=== PATIENT | female | born 1975 | race Caucasian/White ===

== ENCOUNTER 2016-10-05 22:48 | Emergency (ER) | payer OTHER ==
[~2016-10-05] VITALS: Ht 144.8 cm; Wt 111.4 kg
[2016-10-05 22:50] VITALS: TEMP 37.2; Ht 144.8 cm; Wt 111.4 kg
[2016-10-05] MEDS ORDERED: PRLSR20 PO (23:17)
[2016-10-05] MEDS ORDERED: CHOL1000 PO (23:18)
[2016-10-05 23:49] VITALS: BP 135/77; PULSE 76; O2SAT 96
--- NOTE | 2016-10-06 02:31 | EMERGENCY ROOM VISIT NOTE ---
History Report prepared by Felicia: Donta Carlin Under the Supervision of: Dr. Joceline Morales M.D. First contact with patient: 23:23 Chief Complaint: RASH Stated Complaint: RASH TURNING RED History of Present Illness The patient is a 41 year old female with baseline MR who presents to the Emergency Room with complaints of an acute rash that started prior to arrival. The patient states that the rash is somewhat itchy. The patient's mother notes that the rash broke out approximately 30 minutes after the patient took Tessalon Perles. The patient has never had Tessalon before. The patient's throat does not feel tight, and she has not vomited. The patient was prescribed Tessalon by Dr. Ramirez (Family Medicine) in [place] for a cough that has been going for 2.5 weeks. The cough produces whitish-yellow sputum. The patient has not taken any antihistamines. She has an inhaler and nebulizer at home. The patient is not currently on antibiotics. She is allergic to Ceftin. Source of History: patient, parent Onset: prior to arrival Position: other (skin) Quality: other (rash) Timing: other (acute) Associated Symptoms: No vomiting Review of Systems See HPI for pertinent positives & negatives. A total of 10 systems reviewed and were otherwise negative. Past Medical & Surgical Medical Problems: (1) Down syndrome Family History No pertinent family history Social History Smoking Status: Never Smoker Marital Status: single Housing Status: lives with family Occupation Status: disabled Current/Historical Medications Scheduled Cholecalciferol (Vitamin D3), 1 TAB PO DAILY Omeprazole (Prilosec), 10 MG PO DAILY Allergies Coded Allergies: Cefuroxime (Verified Allergy, Intermediate, HIVES, RASH, SOB, 10/05/16) Physical Exam Vital Signs Date Time Temp Pulse Resp B/P (MAP) Pulse Ox O2 Delivery O2 Flow Rate FiO2 10/05/16 23:49 76 16 135/77 96 Room Air 10/05/16 22:50 37.2 76 16 122/78 97 Room Air Physical Exam Vital signs reviewed. General: Obese, well-appearing female, no distress. HEENT: No scleral icterus, PERRLA, neck supple. Atraumatic. No posterior oropharyngeal or periorbital edema. Cardiovascular: Regular rate and rhythm, no extra sounds. Pulmonary: Clear to auscultation bilaterally, normal work of breathing. Abdomen: Soft, nontender, nondistended, positive bowel sounds. Musculoskeletal: Atraumatic, no peripheral edema. Neurologic: Patient awake alert and oriented x 3 Skin: Faint, fine sandpapery rash to the extremities, back and cheeks. Medical Decision & Procedures Medications Administered Medications (Trade) Dose Ordered Sig/Luis Route Start Time Stop Time Status Last Admin Dose Admin Diphenhydramine HCl (Benadryl Cap) 50 mg NOW ONCE PO 10/05/16 23:45 10/05/16 23:46 DC 10/05/16 23:48 50 MG ED Course 2332: Past medical records reviewed. The patient was evaluated in room A11b. A complete history and physical examination was performed. 2345: Benadryl 50 mg PO. 2345: Discussed the discharge instructions with the patient and her mother. They understand the discharge instructions. The patient is ready for discharge. Medical Decision Differential diagnosis: Etiologies such as allergic reaction, anaphylaxis, urticaria, Thorpe-Bola syndrome, toxic epidermal necrolysis, erythema multiforme, cellulitis, as well as others were entertained. Blood Pressure Screening: Patient was found to have normal blood pressure on screening and does not require follow-up. Medication Reconciliation: I attest that I have personally reviewed the patient' s current medication list. This patient was evaluated and appeared to be in no significant distress. Physical exam is fairly unrevealing. There is a mild rash. Patient was given 50 mg of oral Benadryl. Mother was advised to discontinue Tessalon Perles. She will use Benadryl as needed every 6 hours. They will follow-up with primary care physician this week if symptoms continue and return to the ER for worsening of symptoms or any medical concerns. Impression Primary Impression: Allergic reaction Scribe Attestation The scribe's documentation has been prepared under my direction and personally reviewed by me in its entirety. I confirm that the note above accurately reflects all work, treatment, procedures, and medical decision making performed by me. Departure Information Dispostion Home / Self-Care Referrals Karthik Ramirez M.D. (PCP) Forms HOME CARE DOCUMENTATION FORM, IMPORTANT VISIT INFORMATION, WORK / SCHOOL INSTRUCTIONS Patient Instructions My [facility] Additional Instructions Diagnosis: Allergic Reaction Benadryl 50 mg every 6 hours as needed for itching, rash Avoid Tessalon perrles in the future Follow up with your doctor next week for reevaluation. Return to emergency for worsening of symptoms or any medical concerns.
== END 2016-10-05 23:53 | disposition home or self-care (01) ==
LOC: C.EDB 22:49 → C.EDA 23:53
DX: T78.40XA Allergy, unspecified, initial encounter (principal); X58.XXXA Exposure to other specified factors, initial encounter; Q90.9 Down syndrome, unspecified; Z79.899 Other long term (current) drug therapy; E66.9 Obesity, unspecified; Z68.43 Body mass index [BMI] 50.0-59.9, adult

== ENCOUNTER 2017-07-22 09:57 | Emergency (ER) | payer OTHER ==
[~2017-07-22] VITALS: Ht 129.5 cm; Wt 112.8 kg
[~2017-07-22 09:57] MED LIST: CHOL1000 PO; PRLSR20 PO
[2017-07-22 10:02] VITALS: TEMP 37.2; Ht 129.5 cm; Wt 112.8 kg
[2017-07-22] MEDS ORDERED: CITA20TA4 PO (11:02)
[2017-07-22] MEDS ORDERED: MONT1TAB3 PO (11:02)
[2017-07-22] MEDS ORDERED: NORE1TAB93 PO (11:02)
[2017-07-22] MEDS ORDERED: SULF800T23 PO (11:02)
[2017-07-22] MEDS ORDERED: FAMO20TA11 PO (11:05)
[2017-07-22] MEDS ORDERED: VNTHFA/IN INH (11:05)
[2017-07-22] MEDS ORDERED: OXGN (11:05)
[2017-07-22] MEDS ORDERED: LEVO100T7 PO (11:06)
[2017-07-22] MEDS ORDERED: OPTIRAY 320 IV PRN (11:30)
[2017-07-22 11:47] LABS: BASO % 1.1 %; BASO ABS # 0.07 K/uL (0-0.2); EOS ABS # 0.12 K/uL (0-0.5); HEMATOCRIT 41.4 % (37-47); HEMOGLOBIN 14.3 g/dL (12.0-16.0); IG# 0.02 K/uL (0.00-0.02); LYMPH ABS # 1.22 K/uL (1.2-3.4); MEAN CELL VOLUME 97.2 fL (80-100); MEAN CORPUSCULAR HEMOGLOBIN 33.6 pg (25-34); MEAN CORPUSCULAR HGB CONC 34.5 g/dl (32-36); MEAN PLATELET VOLUME 9.6 fL (7.4-10.4); MONO % 5.2 %; MONO ABS # 0.32 K/uL (0.11-0.59); NEUT % 71.4 %; NEUT ABS # 4.35 K/uL (1.4-6.5); PLATELET COUNT 231 K/uL (130-400); RED CELL DISTRIBUTION WIDTH CV 12.8 % (11.5-14.5); RED CELL DISTRIBUTION WIDTH SD 44.8 fL (36.4-46.3)
[2017-07-22 12:08] LABS: CALCIUM 8.2 mg/dl (8.5-10.1); CREATININE 1.23 mg/dl (0.60-1.20)
--- NOTE | 2017-07-22 12:41 | DIAGNOSTIC IMAGING REPORT ---
HEAD COMBO CLINICAL HISTORY: Headache, right facial pain and right-sided vision loss. COMPARISON STUDY: No previous studies for comparison. TECHNIQUE: Axial images of the head were obtained before and after intravenous administration of 120 cc of Optiray 320 IV. FINDINGS: No acute intracranial hemorrhage, midline shift or mass effect is present. A cavum septum pellucidum is noted. This represents an anatomic variant of no significance. The basilar cisterns are patent. There are no extra-axial collections. There are scattered white matter hypodensities which are predominant the subcortical in distribution. No intracranial mass or pathologic enhancement is identified. There are no significant calvarial abnormality. Sinuses are better depicted on the maxillofacial CT. IMPRESSION: 1. No acute intracranial findings. 2. No intracranial mass or pathologic enhancement. 3. Scattered nonspecific white matter hypodensities. These statistically reflect small vessel disease although are greater than expected for age. A demyelinating process is within the differential although the appearance is not highly suggestive of multiple sclerosis. Electronically signed by: Jose Manuel Parikh M.D. 07/22/2017 12:40 PM Dictated Date/Time: 07/22/2017 12:33 PM
--- NOTE | 2017-07-22 12:44 | DIAGNOSTIC IMAGING REPORT ---
FACIAL-MAXILLOFACIAL WITH HISTORY: 42 years-old Female R facial pain, OBANDO, R visual loss acute headache with right-sided facial pain and vision loss COMPARISON: CT maxillofacial study 08/09/2011 TECHNIQUE: Multiple axial CT images of the maxillofacial structures were obtained following the intravenous administration of 120 mL Optiray 320 IV contrast. A dose lowering technique was used consistent with the principals of HALI. FINDINGS: The soft tissues of the face appear unremarkable. No significant inflammatory stranding or fluid collection identified to suggest abscess. Mildly prominent bilateral level 1 lymph nodes are seen measuring up to 7 mm in short axis. The bilateral parotid, submandibular and sublingual glands appear unremarkable. Nasopharynx and oropharynx are patent and unremarkable. Secretions are seen within the right vallecula. Globes and orbits appear unremarkable. No acute intracranial abnormality. Cavum septum lucidum. No abnormal enhancement. Evaluation of the bony structures demonstrates no acute fracture. Mastoid air cells are clear. Mild polypoid mucosal thickening of the left maxillary sinus with mild bilateral maxillary sinus mucoperiosteal thickening. Hypoplasia of the frontal sinuses. Mild to moderate mucosal thickening of the ethmoid air cells. Degenerative changes are noted within the spine. Evidence of bilateral maxillary antrostomy. IMPRESSION: 1. No acute soft tissue abnormality or drainable fluid collections identified. 2. Mildly prominent bilateral level I lymph nodes may be reactive. 3. Paranasal sinus disease as above. 4. No acute facial bone fracture. The above report was generated using voice recognition software. It may contain grammatical, syntax or spelling errors. Electronically signed by: Parth Kearns M.D. 07/22/2017 12:42 PM Dictated Date/Time: 07/22/2017 12:34 PM
[2017-07-22 15:05] VITALS: BP 115/68; PULSE 78; O2SAT 98
--- NOTE | 2017-07-22 20:01 | EMERGENCY ROOM VISIT NOTE ---
History First contact with patient: 11:05 Chief Complaint: EYE ASSESSMENT Stated Complaint: CANT SEE OUT OF EYE AND SWOLLEN FACE History of Present Illness The patient is a 42 year old female, history of Down syndrome and extensive sinus surgery in 2011, who presents to the Emergency Room with her parents with complaints of right facial pain, headache and inability to see out of her right eye. The parents report that she woke up at 4 AM with this visual demise. The mother reports that the patient has had several infections recently, and has been treated with a Z-Epi and Bactrim. Her last Bactrim treatment was initiated on 07/16/17 for "fluid on her lungs". The patient has history of anaphylaxis with Ceftin. The patient's last sinus surgery was in [address] Encinas. She has followed recently (within the past year, by Dr. Howard. The family reports that they were not happy with his care. The patient has had improvement of her cough since taking the Bactrim. The mother reports that she did have fluid in her right ear on her last PCP exam on 07/16/17. The patient denies any pain. Review of Systems Review of systems could not be performed because of the patient's Down's history. A limited 6 system review was performed with the parents with pertinent positives and negatives as indicated in HPI. Past Medical/Surgical History Medical Problems: (1) Asthma (2) Bronchitis (3) Down syndrome Surgical Problems: (1) History of sinus surgery (2) Status post bilateral foot surgery Family History FH: cancer FH: diabetes mellitus FH: hypertension FH: lung disease Social History Smoking Status: Never Smoker Alcohol Use: none Marital Status: single Housing Status: lives with family Occupation Status: disabled Current/Historical Medications Scheduled Albuterol Hfa (Ventolin Hfa), 2-4 PUFFS INH Q6H Citalopram Hydrobromide (Citalopram Hydrobromide), 30 MG PO QAM Famotidine (Pepcid), 20 MG PO BID Home O2 Therapy (Oxygen), 1 LITER NA PRN Levothyroxine Sodium (Levothyroxine Sodium), 100 MCG PO QAM Montelukast Sodium (Singulair), 10 MG PO HS Norethin Acet & Estrad-Fe (Roopa Fe 1.5/30 1.5-30 mg-Mcg), 1 TAB PO DAILY Sulfa/Trimethoprim (Bactrim Ds 800MG/160MG), 1 TAB PO BID Physical Exam Vital Signs Date Time Temp Pulse Resp B/P (MAP) Pulse Ox O2 Delivery O2 Flow Rate FiO2 07/22/17 15:05 78 18 115/68 98 Room Air 07/22/17 14:00 81 19 109/61 97 Room Air 07/22/17 12:00 83 18 107/55 96 Room Air 07/22/17 10:02 37.2 83 16 135/82 95 Room Air Right Eye Acuity: "cant see anything" Left Eye Acuity: 20/50 Physical Exam CONSTITUTIONAL: Obese female, alert and oriented X 3 with positive affect. The patient is wearing sunglasses, resting in a darkened room. HEENT: Normocephalic, atraumatic. Pupils equal, round and reactive. No obvious right facial edema, periorbital edema or erythema. She has no significant conjunctival injection. Further exam was difficult because of the patient's balance history. Patient does not appear to have any significant discomfort with extraocular movements. Patient is severely photophobic in both eyes, precluding funduscopic exam. Examination of the ears does not show any air-fluid levels. Bony landmarks and light reflexes are visible bilaterally. No facial droop noted. NECK: Full active range of motion without discomfort. No JVD or carotid bruits. RESPIRATORY: Clear to auscultation bilaterally with no wheezing, crackles, rhonchi or stridor. CARDIOVASCULAR: Regular rate and rhythm with no murmurs, rubs or gallops. GASTROINTESTINAL: Bowel sounds present in all quadrants. Soft and nontender to palpation. MUSCULOSKELETAL: Full range of motion of all joints without discomfort. INTEGUMENTARY: No rash or other significant dermatologic conditions noted. HEMATOLOGIC: No ecchymosis or petechiae noted. NEUROLOGIC: Cranial nerves II-XII grossly intact, although again examination was difficult. No focal neurologic deficits noted. Facial sensations are intact. Medical Decision & Procedures ER Provider Diagnostic Interpretation: My interpretation of an ECG shows a normal sinus rhythm of [address] elevation or other conduction abnormalities. CT of the brain does not show any obvious intracranial bleeds, midline shift or mass-effect. Radiologist report is as follows: HEAD COMBO CLINICAL HISTORY: Headache, right facial pain and right-sided vision loss. COMPARISON STUDY: No previous studies for comparison. TECHNIQUE: Axial images of the head were obtained before and after intravenous administration of 120 cc of Optiray 320 IV. FINDINGS: No acute intracranial hemorrhage, midline shift or mass effect is present. A cavum septum pellucidum is noted. This represents an anatomic variant of no significance. The basilar cisterns are patent. There are no extra-axial collections. There are scattered white matter hypodensities which are predominant the subcortical in distribution. No intracranial mass or pathologic enhancement is identified. There are no significant calvarial abnormality. Sinuses are better depicted on the maxillofacial CT. IMPRESSION: 1. No acute intracranial findings. 2. No intracranial mass or pathologic enhancement. 3. Scattered nonspecific white matter hypodensities. These statistically reflect small vessel disease although are greater than expected for age. A demyelinating process is within the differential although the appearance is not highly suggestive of multiple sclerosis. Noncontrast CT of the facial bones does not show any significant acute changes or facial abscess. Radiologist report is as follows: FACIAL-MAXILLOFACIAL WITH HISTORY: 42 years-old Female R facial pain, OBANDO, R visual loss acute headache with right-sided facial pain and vision loss COMPARISON: CT maxillofacial study 08/09/2011 TECHNIQUE: Multiple axial CT images of the maxillofacial structures were obtained following the intravenous administration of 120 mL Optiray 320 IV contrast. A dose lowering technique was used consistent with the principals of ALARA. FINDINGS: The soft tissues of the face appear unremarkable. No significant inflammatory stranding or fluid collection identified to suggest abscess. Mildly prominent bilateral level 1 lymph nodes are seen measuring up to 7 mm in short axis. The bilateral parotid, submandibular and sublingual glands appear unremarkable. Nasopharynx and oropharynx are patent and unremarkable. Secretions are seen within the right vallecula. Globes and orbits appear unremarkable. No acute intracranial abnormality. Cavum septum lucidum. No abnormal enhancement. Evaluation of the bony structures demonstrates no acute fracture. Mastoid air cells are clear. Mild polypoid mucosal thickening of the left maxillary sinus with mild bilateral maxillary sinus mucoperiosteal thickening. Hypoplasia of the frontal sinuses. Mild to moderate mucosal thickening of the ethmoid air cells. Degenerative changes are noted within the spine. Evidence of bilateral maxillary antrostomy. IMPRESSION: 1. No acute soft tissue abnormality or drainable fluid collections identified. 2. Mildly prominent bilateral level I lymph nodes may be reactive. 3. Paranasal sinus disease as above. 4. No acute facial bone fracture. Laboratory Results 07/22/17 11:35 Red Blood Count 4.26, Mean Corpuscular Volume 97.2, Mean Corpuscular Hemoglobin 33.6, Mean Corpuscular Hemoglobin Concent 34.5, Mean Platelet Volume 9.6, Neutrophils (%) (Auto) 71.4, Lymphocytes (%) (Auto) 20.0, Monocytes (%) (Auto) 5.2, Eosinophils (%) (Auto) 2.0, Basophils (%) (Auto) 1.1, Neutrophils # (Auto) 4.35, Lymphocytes # (Auto) 1.22, Monocytes # (Auto) 0.32, Eosinophils # (Auto) 0.12, Basophils # (Auto) 0.07 07/22/17 11:35 Test 07/22/17 11:35 White Blood Count 6.10 K/uL (4.8-10.8) Red Blood Count 4.26 M/uL (4.2-5.4) Hemoglobin 14.3 g/dL (12.0-16.0) Hematocrit 41.4 % (37-47) Mean Corpuscular Volume 97.2 fL (80-100) Mean Corpuscular Hemoglobin 33.6 pg (25-34) Mean Corpuscular Hemoglobin Concent 34.5 g/dl (32-36) Platelet Count 231 K/uL (130-400) Mean Platelet Volume 9.6 fL (7.4-10.4) Neutrophils (%) (Auto) 71.4 % Lymphocytes (%) (Auto) 20.0 % Monocytes (%) (Auto) 5.2 % Eosinophils (%) (Auto) 2.0 % Basophils (%) (Auto) 1.1 % Neutrophils # (Auto) 4.35 K/uL (1.4-6.5) Lymphocytes # (Auto) 1.22 K/uL (1.2-3.4) Monocytes # (Auto) 0.32 K/uL (0.11-0.59) Eosinophils # (Auto) 0.12 K/uL (0-0.5) Basophils # (Auto) 0.07 K/uL (0-0.2) RDW Standard Deviation 44.8 fL (36.4-46.3) RDW Coefficient of Variation 12.8 % (11.5-14.5) Immature Granulocyte % (Auto) 0.3 % Immature Granulocyte # (Auto) 0.02 K/uL (0.00-0.02) Erythrocyte Sedimentation Rate 15 mm/hr (0-21) Anion Gap 8.0 mmol/L (3-11) Est Creatinine Clear Calc Drug Dose 57.6 ml/min Estimated GFR () 63.5 Estimated GFR (Non- 54.8 BUN/Creatinine Ratio 8.8 (10-20) Calcium Level 8.2 mg/dl (8.5-10.1) C-Reactive Protein 2.38 mg/dl (0-0.29) The above labs were reviewed. ED Course Patient history and physical exam were performed. Nurse's notes were reviewed. Vital signs were reviewed and were normal. Patient is currently afebrile and not tachycardic. I did review prior medical records as well, including the patient's operative note on 10/26/[address] Encinas. The patient had a septoplasty of bilateral inferior turbinates, right frontal sinusotomy, right anterior and posterior ethmoidectomy, right maxillary antrostomy, left anterior ethmoidectomy and left maxillary antrostomy. Because of concern for possible extensive sinus infection, I did suggest performing a CT with IV contrast. The parents report that the patient is a difficult stick. IV access was established in the emergency department. Labs were drawn and reviewed, showing no acute findings. ECG was also performed and was normal. CT combo of the brain, as well as CT of the facial bones with IV contrast did not show any acute findings. Because of the patient's complaint of inability to see out the right eye. The case was discussed with Dr. Gallegos, ED attending physician, and Dr. Hodge, home economist consumer service masonry instructor who suggested that if the patient has an home economist consumer service , she should follow-up with him for further evaluation. If the patient does not have an home economist consumer service, he would be happy to see the patient, and would want her to come directly to their office. The mother reports that the patient did have an home economist consumer service in [place], however they are no longer there. The family was provided contact information for Dr. Hodge, and instructed to go directly to his office for further evaluation. The patient still reported a visual disturbance at the time of discharge, but denied any significant pain. Medical Decision Patient presents with complaint of subjective visual disturbance of the right eye. It is noted on exam the patient was quite photophobic. She did not have any drainage from the eye. A question if the patient may have a corneal abrasion. Examination was very difficult as the patient would not open her eyes except for when I was not close to her. CT scan today does not show any evidence for acute sinusitis or other acute findings that would explain the patient's symptoms. Laboratory studies do not show any white count. Patient is afebrile. [place] Drug Monitoring Program Search Results: patient reviewed within database Medication Reconcilliation Current Medication List: was personally reviewed by me Blood Pressure Screening Patient's blood pressure: Normal blood pressure Impression Primary Impression: Subjective visual disturbance, right eye Departure Information Referrals Karthik Ramirez M.D. (PCP) Patient Instructions My [facility]
--- NOTE | 2017-07-23 09:40 | EMERGENCY ROOM VISIT NOTE ---
ED Visit Note First contact with patient: 11:05 The patient was seen and examined with Ollie Tariq PA-C. I agree with the history, physical and findings. Please see the note for disposition and details.
== END 2017-07-22 15:06 | disposition home or self-care (01) ==
LOC: C.EDB 09:59 → C.EDD 15:06
DX: H53.10 Unspecified subjective visual disturbances (principal); Q90.9 Down syndrome, unspecified; Z79.899 Other long term (current) drug therapy; J45.909 Unspecified asthma, uncomplicated